=== PATIENT | male | born 1950 | race Hispanic/Latino ===

== ENCOUNTER 2018-01-21 10:23 | Day surgery (SDC) | payer MEDICARE, OTHER ==
[2018-01-21] MEDS ORDERED: VANCOMYCIN/NS 1 GM/250 ML 1 GM/250 ML BAG IV SCH (11:41)
[2018-01-21] MEDS ORDERED: VANCOMYCIN/0.45 NS 1 GM/250 ML 1 GM/250 ML BAG IV SCH (12:00)
[2018-01-21] MEDS ORDERED: ZOFRAN IV PRN (12:07)
[2018-01-21] MEDS ORDERED: DILAUDID IV PRN (12:07)
--- NOTE | 2018-01-21 12:07 | Anesthesia Day of Surgery ---
Anesthesia Day of Surgery - Day of Surgery Patient Examined: Yes Patient H&P Reviewed: Yes Patient is NPO: Yes
--- NOTE | 2018-01-21 12:07 | Anesthesia Consultation ---
Anesthesia Consult and Med Hx - Airway Anesthetic Teeth Evaluation: Good ROM Head & Neck: Adequate Mental/Hyoid Distance: Adequate Mallampati Class: Class II Intubation Access Assessment: Good - Pulmonary Exam CTA: Yes - Cardiac Exam Cardiac Exam: RRR - Pre-Operative Health Status ASA Pre-Surgery Classification: ASA2 Proposed Anesthetic Plan: General - Pulmonary Hx Smoking: No Hx Sleep Apnea: No (SHIVANI PRE SCREEN HIGH RISK.) - Cardiovascular System Hx Hypertension: Yes (X 1 YR) - Central Nervous System Hx Back Pain: Yes - Hematic Hx Anemia: Yes (NOT RECENT) - Other Systems Hx Cancer: Yes (MELANOMA LT LEG X 2-REMOVED (NO CHEMO/RADIATION))
--- NOTE | 2018-01-21 12:09 | XRay Report ---
ABDOMEN RADIOGRAPH INDICATION: Right renal stone. Preoperative for lithotripsy on 01/21/2018. COMPARISON: None similar at this institution. FINDINGS: Frontal abdominal radiograph demonstrates nonobstructive bowel gas pattern without focal suspicious calcification, pneumatosis or pneumoperitoneum. Right hemipelvic phlebolith. Moderate colonic stool/possible constipation. Clear visualized lung bases. Spinal degenerative changes. CONCLUSION: Possible constipation without acute radiographic abnormality, as described. Please correlate. Thank you for the opportunity to participate in this patient's care.
[2018-01-21] MEDS ORDERED: XYLOCAINE MPF 2% ONE (12:50)
[2018-01-21] MEDS ORDERED: SUBLIMAZE ONE (12:50)
[2018-01-21] MEDS ORDERED: DIPRIVAN 10 MG/ML IV ONE (12:50)
[2018-01-21] MEDS ORDERED: LACTATED RINGERS 1,000 ML IV SCH (13:00)
[2018-01-21] MEDS ORDERED: DECADRON ONE (13:00)
[2018-01-21] MEDS ORDERED: ePHEDrine SULFATE ONE (13:03)
[2018-01-21] MEDS ORDERED: ZOFRAN ONE (13:17)
[2018-01-21] MEDS ORDERED: WATER FOR IRRIG STERILE IR ONE (14:00)
--- NOTE | 2018-01-21 14:57 | Post Anesthesia Evaluation ---
- Post Anesthesia Evaluation Patient Participated: Yes Airway Patent: Yes Stable Respiratory Function: Yes Nausea/Vomiting: No Temp > 96.8F: Yes Pain Manageable: Yes Adequeate Hydration: Yes Anesthesia Complications: No Block Receding Appropriately: Not Applicable
--- NOTE | 2018-01-21 15:48 | Fluoroscopy Report ---
FLUORO RETROGRADE UROGRAPHY FLUORO URETER/NEPHROSTOMY DILATATION RIGHT INDICATION: Right ureteral stone. COMPARISON: None similar. FINDINGS: Total of 11+2=13 submitted fluoroscopic images. Procedure performed by Dr. Masters. 10 mL of Omnipaque 300 utilized. Initial tire mold engraver radiographs obtained at 2 PM, 01/21/2018 demonstrate right hemipelvic phlebolith and nonobstructive bowel gas pattern. Subsequent left retrograde pyelogram demonstrates normal left ureter and intrarenal collecting system opacification. Right retrograde pyelogram then performed with slightly prominent right ureteral caliber and mild intrarenal collecting system fullness/hydronephrosis. Right ureteroscopy and balloon dilatation of the right ureter also performed with subsequent satisfactory stent placement. CONCLUSION: Intraoperative fluoroscopic assistance provided for bilateral retrograde pyelogram, right uteroscopy, balloon dilatation and stent placement, as described. Please also correlate with procedural notes. Thank you for the opportunity to participate in this patient's care.
--- NOTE | 2018-01-21 15:48 | Fluoroscopy Report ---
FLUORO RETROGRADE UROGRAPHY FLUORO URETER/NEPHROSTOMY DILATATION RIGHT INDICATION: Right ureteral stone. COMPARISON: None similar. FINDINGS: Total of 11+2=13 submitted fluoroscopic images. Procedure performed by Dr. Masters. 10 mL of Omnipaque 300 utilized. Initial animal science instructor radiographs obtained at 2 PM, 01/21/2018 demonstrate right hemipelvic phlebolith and nonobstructive bowel gas pattern. Subsequent left retrograde pyelogram demonstrates normal left ureter and intrarenal collecting system opacification. Right retrograde pyelogram then performed with slightly prominent right ureteral caliber and mild intrarenal collecting system fullness/hydronephrosis. Right ureteroscopy and balloon dilatation of the right ureter also performed with subsequent satisfactory stent placement. CONCLUSION: Intraoperative fluoroscopic assistance provided for bilateral retrograde pyelogram, right uteroscopy, balloon dilatation and stent placement, as described. Please also correlate with procedural notes. Thank you for the opportunity to participate in this patient's care.
[2018-01-21 15:56] VITALS: BP 144/73
--- NOTE | 2018-01-21 16:14 | Short Stay Summary ---
Short Stay Documentation Date of service: 01/21/18 - History H&P: obtained from office - Allergies and Medications Current Medications: Allergies amoxicillin Adverse Reaction (Verified 01/18/18 15:56) NOT EFFECTIVE PT STATES DOES NOT WORK-DOES NOT TO BE GIVEN THIS MED. Home Medications Medication Instructions Recorded Confirmed Last Taken Type Aspirin [Lo-Dose Aspirin EC] 81 mg PO DAILY 01/18/18 01/21/18 01/14/18 History Finasteride [Proscar] 5 mg PO DAILY 01/18/18 01/18/18 Unknown History Krill/Om-3/Dha/Epa/Phospho/Ast 1 each PO DAILY 01/18/18 01/21/18 01/14/18 History [Krill Oil 1,000 mg Softgel] Multivit-Mins/Iron/Folic/Lycop 1 each PO DAILY 01/18/18 01/21/18 01/14/18 History [Centrum Men's Tablet] Pramipexole [Mirapex] 0.25 mg PO PRN PRN 01/18/18 01/21/18 01/14/18 History Rosuvastatin Calcium [Crestor] 10 mg PO DAILY 01/18/18 01/21/18 01/20/18 History Sulfamethoxazole/Trimethoprim 1 each PO BID 01/18/18 01/21/18 01/20/18 History [Bactrim 400-80 mg Tablet] Tamsulosin [Flomax] 0.4 mg PO QDAY 01/18/18 01/21/18 01/20/18 History Ubidecarenone/Vit E Acet [Co Q-10 1 cap PO DAILY 01/18/18 01/21/18 01/14/18 History 100 mg Softgel] amLODIPine [Norvasc] 2.5 mg PO DAILY 01/18/18 01/21/18 01/20/18 History Active Medications Hydromorphone HCl (Dilaudid) 0.5 mg IV Q10MIN PRN PRN Reason: Pain , Severe (7-10) Last Admin: 01/21/18 14:30 Dose: 0.5 mg Vancomycin HCl (Vancomycin/0.45 Ns 1 Gm/250 Ml) 1 gm in 250 mls @ 167.007 mls/ hr IV PREOP NILTON Stop: 01/21/18 23:59 Last Admin: 01/21/18 12:22 Dose: 167.007 mls/hr Lactated Ringer's (Lactated Ringers) 1,000 mls @ 42 mls/hr IV DIRECT NILTON Last Admin: 01/21/18 12:20 Dose: 42 mls/hr Ondansetron HCl (Zofran) 4 mg IV ONCE PRN PRN Reason: Nausea And Vomiting - Brief post op/procedure progress note Date of procedure: 01/21/18 Pre-op diagnosis: right uret stone 6mm Post-op diagnosis: same Procedure: right urs, laser, sbe, stent 6x26; dilation Anesthesia: GETA Findings: hydro; spiculated stone Surgeon: MARYLU TAI Estimated blood loss: minimal Pathology: list (stone frags) Specimen disposition: to lab Condition: stable - Hospital course Hospital course: [email or web address] - Disposition Condition at discharge: Good Disposition: DC- TO HOME OR SELFCARE Short Stay Discharge Plan Activity: advance as tolerated Diet: advance as tolerated Follow up with: MARYLU TAI MD [Staff Physician] - 7 Days Forms: Outpatient Surgery DC Inst.
--- NOTE | 2018-02-22 07:32 | Operative Report ---
PREOPERATIVE DIAGNOSIS: Right ureteral stone, 6 mm. POSTOPERATIVE DIAGNOSIS: Right ureteral stone, 6 mm. PROCEDURE: Right ureteroscopy, laser stone basket extraction, stent 6 x 26 ureteral dilation. ANESTHESIA: General. FINDINGS: Hydronephrosis with a spiculated stone. SURGEON: Alberto Masters M.D. ESTIMATED BLOOD LOSS: Minimal. PATHOLOGY: Stone fragments. SPECIMENS: To lab. CONDITION: Stable. CLINICAL INDICATIONS: The patient counseled on RCBA, antibiotics, SCDs, and found to have a stone, wanted to proceed with this procedure, alternative options discussed, had antibiotics and SCDs. DESCRIPTION OF PROCEDURE: The patient was transferred to the OR suite in supine position, anesthesia, dorsal lithotomy, prepped and draped in standard fashion. A 20-Nigerien scope passed, normal penile, bulbar prostatic urethra, moderately large lateral and median lobes. Upon entering bladder, pancystoscopy with 30 and 70-degree lens demonstrated no tumors, lesions, or other abnormality. Left UO cannulated, 8-Nigerien cone-tipped catheter, contrast injected. Normal left distal ureter, proximal ureter, renal pelvis calyces, no filling defects or hydronephrosis. On the right side, there was a possible filling defect with hydroureter. At this point, Glidewire passed up to the right renal pelvis under fluoroscopic visualization. The balloon dilator passed, dilated distal ureter up about 3 cm, at approximately 7 atmospheres and this was released, removed. Rigid ureteroscope passed, stone identified, attempted manipulating stone and pulling it out, but then unable to pull out the stone due to significant spiculation. At this point, a holmium laser passed, fragmented the stone into smaller and smaller pieces. Triceps used to grasp and manipulate this and pulled the fragments out within the bladder. The scope eventually was passed up to the proximal ureter without any significant large stones left. There was some debris. Scope withdrawn. Small ____ by appearance, but always as usual possibility of pushback fragments. At this point, the scope was withdrawn. Wire backloaded on the cystoscope. A 6 Nigerien double-J stent was passed over the wire under direct and fluoroscopic visualization. When the wire and string was removed, nice proximal and distal J within the bladder. Bladder was drained. Exam under anesthesia, bilateral testicles and prostate, no nodules. The patient was awakened and transferred to PACU in good and stable condition. JOB# [id number] ATS/NTS
== END 2018-01-21 16:05 | disposition home or self-care (01) ==
LOC: OR 10:23
PROVIDERS: ATTEND Urology
DX: N13.2 Hydronephrosis with renal and ureteral calculous obstruction (principal); I10 Essential (primary) hypertension; Z85.820 Personal history of malignant melanoma of skin; Z88.1 Allergy status to other antibiotic agents
CPT/HCPCS: 36415; 52344; 52356; 74018; 74420; 74485; 82365; A4217; C1758; J1100; J1170; J2405; J2704; J3010; J3370; J7120; Q9967

== ENCOUNTER 2018-03-11 12:58 | Day surgery (SDC) | payer MEDICARE, OTHER ==
[~2018-03-11 12:58] MED LIST: LACTATED RINGERS 1,000 ML IV SCH; VERSED IV NR
[2018-03-11] MEDS ORDERED: ZOFRAN IV PRN (14:46)
[2018-03-11] MEDS ORDERED: DILAUDID IV PRN (14:46)
[2018-03-11] MEDS ORDERED: XYLOCAINE MPF 2% ONE ×2 (15:00→15:15)
[2018-03-11] MEDS ORDERED: DIPRIVAN 10 MG/ML IV ONE ×2 (15:14→16:02)
[2018-03-11] MEDS ORDERED: DILAUDID ONE (15:14)
--- NOTE | 2018-03-11 15:20 | Anesthesia Consultation ---
Anesthesia Consult and Med Hx Date of service: 03/11/18 - Airway Anesthetic Teeth Evaluation: Good ROM Head & Neck: Adequate Mental/Hyoid Distance: Adequate Mallampati Class: Class I Intubation Access Assessment: Probably Good - Pulmonary Exam CTA: Yes - Cardiac Exam Cardiac Exam: RRR - Pre-Operative Health Status ASA Pre-Surgery Classification: ASA2 Proposed Anesthetic Plan: General - Pulmonary Hx Smoking: No Hx Sleep Apnea: No (SHIVANI PRE SCREEN HIGH RISK.) - Cardiovascular System Hx Hypertension: Yes (X 1 YR) - Central Nervous System Hx Back Pain: Yes - Hematic Hx Anemia: Yes (NOT RECENT) - Other Systems Hx Cancer: Yes (MELANOMA LT LEG X 2-REMOVED (NO CHEMO/RADIATION))
--- NOTE | 2018-03-11 15:20 | Anesthesia Day of Surgery ---
Anesthesia Day of Surgery - Day of Surgery Patient Examined: Yes Patient H&P Reviewed: Yes Patient is NPO: Yes
[2018-03-11] MEDS ORDERED: SUBLIMAZE ONE (15:59)
[2018-03-11] MEDS ORDERED: ANCEF/STERILE WATER 2 GM/20 ML IV NR (16:00)
[2018-03-11] MEDS ORDERED: ePHEDrine SULFATE ONE (16:45)
[2018-03-11] MEDS ORDERED: WATER FOR IRRIG STERILE IR ONE (17:02)
--- NOTE | 2018-03-11 17:19 | Short Stay Summary ---
Short Stay Documentation Date of service: 03/11/18 - History H&P: obtained from office - Allergies and Medications Current Medications: Allergies No Known Drug Allergies Allergy (Verified 03/11/18 13:58) Unknown Home Medications Medication Instructions Recorded Confirmed Last Taken Type Aspirin [Lo-Dose Aspirin EC] 81 mg PO DAILY 01/18/18 03/11/18 03/04/18 History Krill/Om-3/Dha/Epa/Phospho/Ast 1 each PO DAILY 01/18/18 03/11/18 03/07/18 History [Krill Oil 1,000 mg Softgel] Multivit-Mins/Iron/Folic/Lycop 1 each PO DAILY 01/18/18 03/11/18 03/07/18 History [Centrum Men's Tablet] Rosuvastatin Calcium [Crestor] 10 mg PO DAILY 01/18/18 03/11/18 03/10/18 History Tamsulosin [Flomax] 0.4 mg PO QDAY 01/18/18 03/11/18 03/10/18 History Ubidecarenone/Vit E Acet [Co Q-10 1 cap PO DAILY 01/18/18 03/11/18 03/07/18 History 100 mg Softgel] amLODIPine [Norvasc] 2.5 mg PO DAILY 01/18/18 03/11/18 03/10/18 21:30 History Active Medications Cefazolin Sodium (Ancef/Sterile Water 2 Gm/20 Ml) 2 gm IV PREOP NR Stop: 03/11/18 23:00 Hydromorphone HCl (Dilaudid) 0.5 mg IV Q10MIN PRN PRN Reason: Pain , Severe (7-10) Stop: 03/11/18 23:59 Lactated Ringer's (Lactated Ringers) 1,000 mls @ 100 mls/hr IV DIRECT NILTON Last Admin: 03/11/18 14:10 Dose: 100 mls/hr Midazolam HCl (Versed) 2 mg IV PREOP NR Stop: 03/11/18 23:59 Last Admin: 03/11/18 15:54 Dose: 2 mg Ondansetron HCl (Zofran) 4 mg IV ONCE PRN PRN Reason: Nausea And Vomiting Stop: 03/11/18 22:00 - Brief post op/procedure progress note Date of procedure: 03/11/18 Pre-op diagnosis: Right uret stx, right uret 1-2mm stone Post-op diagnosis: same Procedure: right uret dil, rt urs / sbe, stent, rpg, indicated Anesthesia: GETA Findings: right uret stx, 1-2mm stone Surgeon: MARYLU TAI Estimated blood loss: minimal Pathology: none Condition: stable - Hospital course Hospital course: [email or web address] - Disposition Condition at discharge: Good Disposition: DC-01 TO HOME OR SELFCARE Short Stay Discharge Plan Activity: advance as tolerated Diet: advance as tolerated Follow up with: MARYLU TAI MD [Staff Physician] - 7 Days
[2018-03-11 18:17] VITALS: BP 149/75
--- NOTE | 2018-03-13 12:55 | Fluoroscopy Report ---
FIFTEEN IMAGES AT FLUOROSCOPIC BILATERAL RETROGRADE PYELOGRAM AND RIGHT STENT PLACEMENT: 03/11/18 CLINICAL: Right ureteral stone. Right ureteral stricture FINDINGS: Stonemason images demonstrate a large right pelvic phlebolith.. Subsequent images demonstrate opacification of mildly dilated right intrarenal collecting system and ureter and a normal left intrarenal collecting system and ureter. Final images demonstrate placement of a right ureteral stent. For more detail, please refer to the operative report.
--- NOTE | 2018-03-13 12:55 | Fluoroscopy Report ---
FIFTEEN IMAGES AT FLUOROSCOPIC BILATERAL RETROGRADE PYELOGRAM AND RIGHT STENT PLACEMENT: 03/11/18 CLINICAL: Right ureteral stone. Right ureteral stricture FINDINGS: Mortgage Protection Specialist images demonstrate a large right pelvic phlebolith.. Subsequent images demonstrate opacification of mildly dilated right intrarenal collecting system and ureter and a normal left intrarenal collecting system and ureter. Final images demonstrate placement of a right ureteral stent. For more detail, please refer to the operative report.
--- NOTE | 2018-04-07 18:33 | Operative Report ---
PREOPERATIVE DIAGNOSIS: Right ureteral stricture, right ureteral 1-2 mm stone. POSTOPERATIVE DIAGNOSIS: Right ureteral stricture, right ureteral 1-2 mm stone. PROCEDURE: Right ureteral dilation, right ureteroscopy, stone basket extraction, stent 7 x 26 RPG. FINDINGS: Right ureteral pinpoint stricture, 1-2 mm stone. SURGEON: Alberto Masters MD ANESTHESIA: General. SPECIMENS: None. ESTIMATED BLOOD LOSS: Minimal. CONDITION: Stable. CLINICAL INDICATIONS: The patient counseled on RCBA, antibiotics, SCDs. The patient has a history of ureteroscopy and a large stone, had stent removal, persistent hydro with no stone on CT on followup. He was scheduled for this procedure, had antibiotics, SCDs. DESCRIPTION OF PROCEDURE: The patient was transferred to the OR suite in supine position, anesthesia, dorsal lithotomy, prepped and draped in standard fashion. Right retrograde pyelogram demonstrated stricture. A Glidewire was passed through the stricture up to the right renal pelvis. Rigid scope passed up to this point. We identified a very small, very narrow strictured area of the ureter. Passed the distal scope, a second wire passed. Next, the wire backloaded on the cystoscope. A 15-Israeli ureteral dilation balloon was passed. We were able to pass this beyond the stricture. This was dilated and held and seemed to open adequately. Next, this was removed. Rigid scope passed. There was noted to be a tiny 1-2 mm stone identified. This was grasped and flushed out of the bladder. Scope was then passed up to the proximal ureter. No significant other stones or regional abnormality. The scope was slowly withdrawn. The area of the strictured area did seem to be adequately open, but there was definitely dense scar there prior to the procedure. At this point, the scope was withdrawn. A 7 x 26 double-J stent was passed over the wire under direct and fluoroscopic visualization. When the wire and string was removed, nice proximal J, nice distal J within the bladder, bladder drained. The patient awakened and transferred to PACU in good and stable condition. JOB# [id number] ATS/NTS
== END 2018-03-11 18:54 | disposition home or self-care (01) ==
LOC: OR 12:58
PROVIDERS: ATTEND Urology
DX: N13.2 Hydronephrosis with renal and ureteral calculous obstruction (principal); I10 Essential (primary) hypertension; Z85.820 Personal history of malignant melanoma of skin; Z79.82 Long term (current) use of aspirin
CPT/HCPCS: 52330; 52332; 52344; 74420; 74485; A4217; C1758; C1769; C2617; J0690; J2250; J2704; J3010; J7120; Q9967; J1170